=== PATIENT | female | born 1975 | race Caucasian/White ===

== ENCOUNTER 2023-03-07 11:19 | Outpatient (CLI) | payer BC, SELFPAY ==
--- NOTE | ~2023-03-07 | MMUS_ITS ---
EXAMINATION: MM diagnostic jordan BI w farhan, US breast BI complete HISTORY: Left breast skin sore TECHNIQUE: Bilateral full field and spot ML, MLO and CC 3-D tomosynthesis images were performed and s ynthetic 2-D images were generated. CAD analysis was submitted and interpreted. High resolution bilat eral complete breast ultrasound examination including all 4 quadrants and subareolar areas was perfor med. COMPARISON: None BREAST PARENCHYMAL COMPOSITION: There are scattered areas of fibroglandular density. FINDINGS: MAMMOGRAPHIC FINDINGS: There is mild lateral fibroglandular asymmetry with increased density in the mid to upper outer right breast. Otherwise no reproducible suspicious mass or architectural distortion, malignant calcification, skin thickening or retraction is evident. ULTRASOUND: No suspicious mass or shadowing or other significant sonographic abnormality of either breast is dete cted. IMPRESSION: 1. No mammographic evidence of malignancy 2. Routine annual mammographic screening is recommended BI-RADS Category 1: Negative Reviewed, dictated and finalized at location A. IMPRESSION: 1. No mammographic evidence of malignancy 2. Routine annual mammographic screening is recommended BI-RADS Category 1: Negative
== END 2023-03-07 11:20 | disposition home or self-care (01) ==
LOC: ANHIMG 11:21
PROVIDERS: PCP Physician Assistant Medical; Visit Provider Physician Assistant Medical
DX: N64.59 Other signs and symptoms in breast (principal); N63.20 Unspecified lump in the left breast, unspecified quadrant
CPT/HCPCS: 76641; 77062; 77066; G0279